=== PATIENT | female | born 1985 | race African-American/Black ===

== ENCOUNTER 2017-01-31 06:40 | Emergency (ER) | payer OTHER | END 2017-01-31 09:00 | disposition home or self-care (01) | LOC: ER1 06:40 | DX: S93.601A Unspecified sprain of right foot, initial encounter (principal); F17.200 Nicotine dependence, unspecified, uncomplicated; Z88.5 Allergy status to narcotic agent; W22.03XA Walked into furniture, initial encounter; Y92.009 Unspecified place in unspecified non-institutional (private) residence as the place of occurrence of the external cause | CPT/HCPCS: 73630; 99283 ==